=== PATIENT | male | born 1945 | race African-American/Black ===

== ENCOUNTER 2017-05-25 20:26 | Emergency (ER) | payer OTHER ==
[2017-05-25] MEDS ORDERED: EPINEPHrine HCL 1 MG/10 ML SYRG IV ONE (20:34)
[2017-05-25] MEDS ORDERED: CALCIUM CHLOR(10%) 100MG/ML 10ML SYRINGE IV ONE (20:34)
[2017-05-25] MEDS ORDERED: SODIUM BICARBONATE 8.4% INJ 50ML SYRINGE IV ONE (20:34)
[2017-05-25] MEDS ORDERED: SODIUM BICARBONATE 8.4 % INJ 50ML VIAL IV ONE (20:39)
[2017-05-25] MEDS ORDERED: SODIUM BICARBONATE 8.4% INJ 50ML SYRINGE ONE (20:40)
== END 2017-05-26 00:20 | disposition expired ==
LOC: EDBD 20:26 → ER 20:33
DX: I46.9 Cardiac arrest, cause unspecified (principal); E11.9 Type 2 diabetes mellitus without complications
CPT/HCPCS: 31500; 92950; 99285; J0171